=== PATIENT | male | born 1975 | race Caucasian/White ===

== ENCOUNTER 2019-02-20 12:15 | Day surgery (SDC) | payer OTHER ==
[~2019-02-20] VITALS: Ht 193 cm; Wt 106.6 kg
[~2019-02-20 12:15] MED LIST: LEVOTAB51 PO; MONT10TA34 PO
[2019-02-20] MEDS ORDERED: SUCCINYLCHOLINE CHLORIDE 20 MG/ML 10ML VIAL IV ONE (14:05)
[2019-02-20] MEDS ORDERED: PROPOFOL 10 MG/ML 20 ML IV ONE (14:05)
[2019-02-20] MEDS ORDERED: KETOROLAC TROMETH 30 MG/ML 1ML VIAL IV ONE (14:05)
[2019-02-20] MEDS ORDERED: NEOSTIGMINE 1 MG/ML INJ (10mg/10ML VIAL) IV ONE (14:05)
[2019-02-20] MEDS ORDERED: fentaNYL CITRATE 100 MCG/2 ML VL IV ONE (14:05)
[2019-02-20] MEDS ORDERED: GLYCOPYRROLATE 0.2 MG/ML 1ML VIAL IV ONE (14:05)
[2019-02-20] MEDS ORDERED: METOCLOPRAMIDE HCL 5MG/ml INJ 2ml VIAL IV ONE (14:05)
[2019-02-20] MEDS ORDERED: ROCURONIUM 10MG/ML 10ML VIAL IV ONE (14:05)
[2019-02-20] MEDS ORDERED: MIDAZOLAM HCL 1MG/1ML-2 ML VIAL IV ONE (14:05)
[2019-02-20] MEDS ORDERED: ONDANSETRON HCL 4 MG/2 ML VIAL IV PRN (15:00)
[2019-02-20] MEDS ORDERED: HYDROmorphone HCL 2 MG/ML VL IV PRN (15:00)
[2019-02-20] MEDS ORDERED: NALOXONE HCL 0.4 MG/ML VIAL IV PRN (15:00)
[2019-02-20] MEDS: HYDROmorphone HCL 2 MG/ML VL IV PRN ×2 (16:11→16:30)
[2019-02-20 16:48] VITALS: BP 132/81
== END 2019-02-20 17:15 | disposition home or self-care (01) ==
LOC: SUR 12:15
PROVIDERS: ATTEND Orthopaedic Surgery Adult Reconstructive Orthopaedic Surgery
DX: S83.511A Sprain of anterior cruciate ligament of right knee, initial encounter (principal); G47.33 Obstructive sleep apnea (adult) (pediatric); G89.29 Other chronic pain; Z79.899 Other long term (current) drug therapy; Z98.890 Other specified postprocedural states; X50.1XXA Overexertion from prolonged static or awkward postures, initial encounter; Y93.89 Activity, other specified; Y92.89 Other specified places as the place of occurrence of the external cause; Y99.8 Other external cause status
CPT/HCPCS: 29888; C1713; J0330; J1170; J1885; J2250; J2704; J2765; J3010